=== PATIENT | male | born 1960 | race Caucasian/White ===

== ENCOUNTER 2017-02-24 17:35 | Emergency (ER) | payer MEDICAID ==
--- NOTE | 2017-02-24 17:54 | ED Physician Chart ---
ED Chief Complaint/HPI - Patient Information Date Seen:: 02/24/17 Time Seen:: 17:40 Chief Complaint:: Pt requests to have his diabetes mellitus evaluated. History of Present Illness:: Pt came to ER by private auto because of his concern about his diabetes mellitus. Pt states that he has not been taking his diabetic medication metformin for a few days. Pt denies any polydipsia or polyuria. No lightheadedness. Allergies:: NKA Vitals:: see Nurse Note. Historian:: Patient Family MD/PCP:: Dr. Fisher LMP:: N/A Review:: Nurse's Note Reviewed ED Review of Systems - Review of Systems General/Constitutional: No fever, No chills, No weight loss, No weakness, No edema, No loss of appetite Skin: No skin lesions, No rash, No bruising Head: No headache, No light-headedness Eyes: No loss of vision, No pain, No diplopia ENT: No earache, No nasal drainage, Sore throat (?) Neck: No neck pain, No swelling, No thyromegaly, No stiffness, No mass noted Cardio Vascular: No chest pain, No edema Pulmonary: No SOB, No cough, No wheezing GI: No nausea, No vomiting, No diarrhea, No pain G/U: No dysuria, No frequency, No hematuria Musculoskeletal: Back pain (Chronic low back pain.) Endocrine: No polyuria, No polydipsia Psychiatric: No prior psych history Hematopoietic: No bruising, No lymphadenopathy Allergic/Immuno: No urticaria, No angioedema Neurological: No syncope, No focal symptoms, No weakness, No paresthesia, No headache, No dizziness, No confusion ED Past Medical History - Past Medical History Past Medical History: HTN, DM Social History: Non Smoker, No Alcohol, No Drug Use, , Lives Alone, Employed Employment:: Animal training. Surgical History: Hernia (L inguinal hernia repair '06) Psychiatricy History: None Medication: Reviewed Family Medical History - Family Member Mother History Unknown: Yes ED Physical Exam - Physical Examination General/Constitutional: Awake, Well-developed, well-nourished, Alert, No distress, GCS 15, Non-toxic appearing, Ambulatory Other Gen/Cons comments:: Breathes comfortably, speaks clearly, ambulates without difficulty, and interacts appropriately. Head: Atraumatic Eyes: Lids, conjuctiva normal, PERRL, EOMI Skin: Nl inspection, No skin lesions, No ecchymosis, Well hydrated, No lymphadenopathy ENMT: External ears, nose nl, TM canals nl, Nasal exam nl, Oropharynx nl, Tonsils nl Neck: Nontender, Full ROM w/o pain, No JVD, No nuchal rigidity, No mass Respiratory: Nl effort/Exclusion, Clear to Auscultation, No Wheeze/Rhonchi/Rales Cardio Vascular: RRR, No murmur, gallop, rubs GI: No tenderness/rebounding/guarding, No organomegaly, Normal BS's, Nondistended, No mass/bruits, No McBurney tenderness Other GI comments:: There is ventral hernia noticed above the umbilicus that can be reduced spontanously by lying down. Nontender. : No CVA tenderness Extremities: No tenderness or effusion, No edema Neuro/Psych: Alert/oriented (oriented x 3), Mood normal, Normal gait, No focal deficits Other Misc comments:: Mild tenderness at R mid lower paralumbar region. No gross deformity, erythema, swelling, or open wound. Pt states that it is a chronic condition. ED Labs/Radiology/EKG Results - Lab Results Results: Laboratory Tests 02/24/17 02/24/17 02/24/17 17:46 18:20 18:20 WBC 5.2 RBC 4.87 Hgb 16.1 Hct 48.3 MCV 99.1 H MCH 33.1 H MCHC Differential 33.4 RDW 12.2 Plt Count 153 MPV 7.9 Neutrophils % 41.3 Lymphocytes % 47.5 Monocytes % 8.1 Eosinophils % 2.5 Basophils % 0.6 PT 10.1 INR 0.97 PTT (Actin FS) 24.4 L Sodium Potassium Chloride Carbon Dioxide Anion Gap BUN Creatinine Est GFR ( Amer) Est GFR (Non-Af Amer) BUN/Creatinine Ratio Glucose POC Glucose 225 H Calcium Total Bilirubin AST ALT Alkaline Phosphatase Total Protein Albumin Globulin Albumin/Globulin Ratio 02/24/17 18:20 WBC RBC Hgb Hct MCV MCH MCHC Differential RDW Plt Count MPV Neutrophils % Lymphocytes % Monocytes % Eosinophils % Basophils % PT INR PTT (Actin FS) Sodium 133 L Potassium 3.7 Chloride 105 Carbon Dioxide 23.1 Anion Gap 8.6 BUN 12 Creatinine 0.7 Est GFR ( Amer) > 60.0 Est GFR (Non-Af Amer) > 60.0 BUN/Creatinine Ratio 17.1 Glucose 237 POC Glucose Calcium 9.0 Total Bilirubin 0.5 AST 20 ALT 32 Alkaline Phosphatase 54 Total Protein 6.1 Albumin 3.5 L Globulin 2.6 Albumin/Globulin Ratio 1.4 ED Septic Shock - . Is Septic Shock (SBP<90, OR Lactate>4 mmol\L) present?: No ED Reassessment (Disposition) - Reassessment Reassessment:: 2104 Pt has been repeatedly evaluated. Pt now feels much better. No abdominal pain or discomfort. Pt has been taking po well without N/V/D. No lightheadedness. Pt has been ambulatory without assistance without difficulty. Remaining lab results just became available. Lab findings have been reviewed with pt. Pt requests to go home now and does not want further observation/ management in hospital. Aftercare instructions have been given. Reassessment Condition:: Improved - Diagnosis Diagnosis:: Diabetes mellitus, suboptimally controlled but stable. Reducible ventral hernia. Stable and currently asymptomatic. - Aftercare/Follow up Instructions Aftercare/Follow-Up Instructions:: Refer to Discharge Instructions Notes:: Continue present care. Pt has been reminded to be compliant with his diabetic therapy, diet, and appropriate activity level. F/U with Dr. Liu or PCP Dr. Fisher in one day for recheck with repeat lab studies: CBC, CMP, urinalysis. Return to ER immediately if condition worsens or if any further questions/problems. Medication Prescribed:: None - Patient Disposition Discharge/Transfer:: Home Time:: 21:15 Condition at Disposition:: Stable, Improved ED Discharge Plan - Patient Disposition Admit/Discharge/Transfer: PT DISCHARGED HOME Condition at Disposition: Improved Instructions: Type 2 Diabetes Mellitus, Adult, Ventral Hernia, Hyperglycemia, [id number] Additional Instructions: follow up with your regular doctor in 1-2 days.
[2017-02-24 18:26] LABS: % BASOPHILS 0.6 % (0.0-2.0); % EOSINOPHILS 2.5 % (0.0-5.0); % LYMPHOCYTES 47.5 % (20.0-50.0); % MONOCYTES 8.1 % (2.0-10.0); % NEUTROPHILS 41.3 % (40.0-80.0); EOSINOPHILE ABSOLUTE 0.1 Th/cmm (0.1-0.4); HEMATOCRIT 48.3 % (41.0-60); HEMOGLOBIN 16.1 gm/dL (12-16); LYMPHOCYTE ABSOLUTE 2.6 Th/cmm (1.5-3.0); MEAN CELL VOLUME 99.1 fl (80-99); MEAN CORPUSCULAR HEMOGLOBIN 33.1 pg (26.0-30.0); MEAN CORPUSCULAR HGB CONC 33.4 pg (28.0-36.0); MEAN PLATELET VOLUME 7.9 fl; MONOCYTE ABSOLUTE 0.4 Th/cmm (0.3-1.0); NEUTROPHILE ABSOLUTE 2.1 Th/cmm (1.8-8.0); PLATELET COUNT 153 Th/cmm (150-400); RED BLOOD COUNT 4.87 Mil/cmm (4.30-5.70); RED CELL DISTRIBUTION WIDTH 12.2 % (11.5-20.0); WHITE BLOOD COUNT 5.2 Th/cmm (4.8-10.8)
[2017-02-24 18:38] LABS: INR 0.97 (0.5-1.4); PROTHROMBIN TIME (TEST) 10.1 SECONDS (9.5-11.5)
[2017-02-24 18:44] LABS: ANION GAP 8.6 (7.0-16.0); BUN - UREA NITROGEN 12 mg/dL (7-25); CARBON DIOXIDE 23.1 mEq/L (21.0-31.0); CHLORIDE 105 mEq/L (98-107); CREATININE - SERUM 0.7 mg/dL (0.7-1.3); GFR AFRICAN-AMERICAN > 60.0 ml/min (>90); GLUCOSE 237 mg/dL; POTASSIUM SERUM 3.7 mEq/L (3.5-5.1); SODIUM SERUM 133 mEq/L (136-145)
[2017-02-24 18:45] LABS: ALB/GLOB RATIO 1.4 (1.0-1.8); ALBUMIN 3.5 gm/dL (4.2-5.5); ALKALINE PHOSPHATASE 54 U/L (34-104); BILIRUBIN,TOTAL 0.5 mg/dL (0.3-1.0); GFR NON AFRICAN-AMERICAN > 60.0 ml/min; SGOT 20 U/L (13-39); SGPT/ALT 32 U/L (7-52); TOTAL PROTEIN,SERUM 6.1 gm/dL (6.0-8.3)
[2017-02-24 19:34] LABS: URINE BILIRUBIN NEGATIVE (NEGATIVE); URINE BLOOD NEGATIVE (NEGATIVE); URINE GLUCOSE (UA) 250 mg/dL (NEGATIVE); URINE KETONE NEGATIVE (NEGATIVE); URINE LEUKOCYTE ESTERASE NEGATIVE (NEGATIVE); URINE MICROSCOPIC INDICATED? YES; URINE NITRATE NEGATIVE (NEGATIVE); URINE PH 5.5 (4.6 - 8.0); URINE PROTEIN NEGATIVE (NEGATIVE); URINE SOURCE CLEAN C; URINE UROBILINOGEN 0.2 E.U./dL (0.2 - 1.0)
[2017-02-24 19:47] LABS: URINE CLARITY SLIGHTLY HAZY (CLEAR); URINE COLOR DARK YELLOW; URINE EPITHELIAL CELLS MODERATE /lpf (FEW); URINE RBC 0-2 /hpf (0-5)
[2017-02-24 19:48] LABS: URINE BACTERIA FEW /hpf (NONE SEEN)
== END 2017-02-24 21:35 | disposition home or self-care (01) ==
LOC: ER 17:35
DX: E11.9 Type 2 diabetes mellitus without complications (principal); K43.9 Ventral hernia without obstruction or gangrene; I10 Essential (primary) hypertension
CPT/HCPCS: 99284; 96374; 36415; 36416; 82948; 85025; 85610; 81001; 80053; J1885; Z7502